=== PATIENT | female | born 1965 | race Caucasian/White ===

== ENCOUNTER → 2018-02-04 | Outpatient (CLI) | payer BC ==
--- NOTE | 2018-02-05 09:47 | RAD ---
DATE: 02/04/2018 EXAM: MAMMO ANKIT SCREENING BILATERAL HISTORY: Routine screening COMPARISON: 04/25/2012 This study was interpreted with the benefit of Computerized Aided Detection (CAD). The breast parenchyma shows scattered fibroglandular densities. Breast parenchyma level B. FINDINGS: 2-D and 3-D tomosynthesis imaging was performed in CC and MLO projections. No new or enlarging breast densities are seen. Minimal benign type calcifications present. No suspicious microcalcifications are evident. IMPRESSION: Stable mammograms without evidence of malignancy. BI-RADS CATEGORY: 2 BENIGN FINDING(S) RECOMMENDED FOLLOW-UP: 12M 12 MONTH FOLLOW-UP PQRS compliance statement: Patient information was entered into a reminder system with a target due date for the next mammogram. Mammography is a sensitive method for finding small breast cancers, but it does not detect them all and is not a substitute for careful clinical examination. A negative mammogram does not negate a clinically suspicious finding and should not result in delay in biopsying a clinically suspicious abnormality. "Our facility is accredited by the [employer] Mammography [employer]."
== END | disposition home or self-care (01) ==
LOC: MAMMO 09:11
PROVIDERS: ATTEND Physician Assistant
DX: Z12.31 Encounter for screening mammogram for malignant neoplasm of breast (principal)
CPT/HCPCS: 77063; 77067

== ENCOUNTER → 2020-09-14 | Outpatient (CLI) | payer BC ==
--- NOTE | 2020-09-14 15:42 | RAD ---
DATE: 09/14/2020 9:20 AM EXAM: DIGITAL SCREEN BILAT W/CAD HISTORY: Screening COMPARISON: 02/04/2018 Bilateral CC and MLO views of the breasts were performed. Bilateral breast tomosynthesis was performed in CC and MLO projections. This study was interpreted with the benefit of Computerized Aided Detection (CAD). FINDINGS: Breast Density: FATTY The Breast Parenchyma is primarily fatty replaced. Breast parenchyma level density A. No suspicious masses, microcalcifications or architectural distortion is present to suggest malignancy in either breast. The visualized axillae are unremarkable. IMPRESSION: No mammographic evidence of malignancy. BI-RADS CATEGORY: 1 NEGATIVE RECOMMENDED FOLLOW-UP: 12M 12 MONTH FOLLOW-UP Annual screening mammography is recommended, unless clinically indicated sooner based on symptoms or change in physical exam. PQRS compliance statement: Patient information was entered into a reminder system with a target due date for the next mammogram. Mammography is a sensitive method for finding small breast cancers, but it does not detect them all and is not a substitute for careful clinical examination. A negative mammogram does not negate a clinically suspicious finding and should not result in delay in biopsying a clinically suspicious abnormality. "Our facility is accredited by the [employer] Mammography [employer]."
== END ==
LOC: MAMMO 09:07
PROVIDERS: ATTEND Physician Assistant
DX: Z12.31 Encounter for screening mammogram for malignant neoplasm of breast (principal)
CPT/HCPCS: 77067

== ENCOUNTER 2021-07-09 18:46 | Emergency (ER) | payer BC ==
[~2021-07-09] VITALS: Ht 167.6 cm; Wt 101.4 kg
--- NOTE | 2021-07-09 18:59 | PHYS DOC ---
Adult General HPI HPI Patient is a 55-year-old female presents with abdominal pain, around her umbilicus, 6 out of 10, sharp in nature with some nausea but no vomiting. States she was diagnosed with Covid a few days ago and has had some generalized body aches, and fatigue with some nasal congestion. Denies any recent travels, traumas, fevers, chest pain, shortness of breath, dysuria, hematuria, blood in the stool or diarrhea. Review of Systems Review of Systems Review of systems otherwise unremarkable except noted in HPI Physical Exam Physical Exam Constitutional: Well developed, well nourished, no acute distress, non-toxic appearance. [] HENT: Normocephalic, atraumatic, bilateral external ears normal, oropharynx moist, no oral exudates, nose normal. [] Eyes: conjunctiva normal, no discharge. [] Neck: Normal range of motion, no tenderness, supple, no stridor. [] Cardiovascular:Heart rate regular rhythm, no murmur [] Lungs & Thorax: Bilateral breath sounds clear to auscultation [] Abdomen: soft, generalized tenderness with no rebound or guarding,, no masses, no pulsatile masses. [] Skin: Warm, dry, no erythema, no rash. [] Back: no CVA tenderness. [] Extremities: No tenderness, no cyanosis, no clubbing, ROM intact, no edema. [] Neurologic: Alert and oriented X 3, no focal deficits noted. [] Psychologic: Affect normal, judgement normal, mood normal. [] EKG EKG [] Radiology/Procedures Radiology/Procedures []am: CT of abdomen and pelvis without contrast INDICATION: Abdominal pain, around umbilical TECHNIQUE: Sequential axial images through the abdomen and pelvis obtained without IV contrast. Sagittal and coronal reformatted images were reconstructed from the axial data and reviewed. Exposure: One or more of the following in the visualized dose reduction techniques were utilized for this examination: 1. Automated exposure control 2. Adjustment of the MA and/or KV according to patient size 3. Use of iterative of reconstructive technique Comparisons: None FINDINGS: Heart size is normal. No pericardial effusion. Patchy areas of groundglass opacity noted lungs bilaterally. No pleural effusion. Diffuse hepatic steatosis. Spleen, pancreas, gallbladder and adrenals are unremarkable. No perinephric inflammation or hydronephrosis. No renal or ureteral calculi are identified. Bladder is decompressed not well evaluated. Uterus is absent. No abnormal adnexal mass. Moderate amount of stool is noted throughout the colon. Appendix is normal. Small bowel is unremarkable. No free intra-abdominal air or fluid. No obstruction. Abdominal aorta has normal course and caliber. No enlarged intra-abdominal lymph nodes are identified. No suspicious osseous lesions or acute fractures. IMPRESSION: 1. No acute process identified in the abdomen or pelvis. 2. Diffuse hepatic steatosis. Heart Score C/O Chest Pain: No Risk Factors: Risk Factors: DM, Current or recent (<one month) smoker, HTN, HLP, family history of CAD, obesity. Risk Scores: Risk Factors: DM, Current or recent (<one month) smoker, HTN, HLP, family history of CAD, obesity. Course & Med Decision Making Course & Med Decision Making Patient is a 55-year-old female presents with abdominal pain Vital signs notable for hypertension. Physical exam noted above. Patient placed on the monitor with IV access established and IV fluid given. EKG with normal rate, normal rhythm, QRS and no STEMI. Troponin normal. Given nausea and pain medicine. Laboratory analysis not concerning. CT notable for fatty liver and probable atypical pneumonia. Started on antibiotics in the ED. Discussed all findings with patient. Advised on Covid quarantine at home. Advised on symptomatic treatment at home. Advised on antibiotics. Advised to follow-up first thing Sunday with primary care physician update on ED visit and diagnoses. Gave return precautions to the ED. Patient grateful, verbalized understanding and agreed with plan of discharge Dragon Disclaimer Dragon Disclaimer This electronic medical record was generated, in whole or in part, using a voice recognition dictation system. Departure Departure: Impression: Primary Impression: Pneumonia Additional Impressions: Lab test positive for detection of COVID-19 virus Hepatic steatosis Disposition: HOME / SELF CARE / HOMELESS Condition: IMPROVED Referrals: MIKA NARANJO (PCP) Patient Instructions: Pneumonia, Adult Additional Instructions: Thank you for coming into the emergency department tonight and allowing us to take care of you. Please read the attached information carefully to go back over what we discussed. Please be sure to quarantine appropriately and contact your primary care physician on Sunday to update on your ED visit. Please discuss with them your diagnosis of fatty liver and strategies to begin treatment and reversal of this process. Please take all your antibiotics as prescribed until gone. Please be sure to drink plenty of fluids, eat at least 3 nutritious meals a day and take your daily multivitamin. You have been tested for or diagnosed with COVID-19. It is an infection caused by a new type of coronavirus. COVID-19 will cause cold-like or mild flu symptoms in most. It can cause more severe symptoms like problems breathing in some. There is no treatment for COVID-19. The body will clear the infection over time. Self-care will help to ease discomfort. Steps to Take: Self-Care Rest as needed. Healthy habits may help you feel better. Steps include: Choose healthy foods including fruits and vegetables. Drink water throughout the day. Get plenty of sleep each night. If you smoke, try to quit. It may ease breathing. Avoid alcohol. Keep Others Healthy The virus can spread to others. Droplets are released every time you sneeze or cough. The droplets can get into the mouth, nose, or eyes of people near you and lead to infection. To lower the chances of spreading COVID-19 to others: Stay at home until your doctor has said it is safe to leave. If you tested positive this will mean staying isolated until both of the following are true: At least 7 days have passed since the start of illness. You are free of fever for at least 72 hours without the use of medicine. During this time: - Avoid public areas, events, or transportation. Do not return to work or school until your doctor has said it is safe to do so. - Call ahead if you need to go to a medical center. Let them know you may have COVID-19. It will help them guide you where to go. They may also ask you to wear a facemask when you come to the office. - If you call for emergency medical services, let them know you may have COVID-19. While at home: - Try to avoid close contact with others. Stay about 6 feet away. - If possible, spend most of your time in a separate room from others. - Use a face mask if you will be in close contact with others such as sharing a room or vehicle. - Have someone wipe down common surfaces in the home. Use household counter hop every day on areas like doorknobs, counters, or sinks. - Cough or sneeze into a tissue. Throw the tissue away right after use. If a tissue is not available, cough or sneeze into your elbow. - Wash your hands often. Wash them after sneezing or coughing. Use soap and water and wash for at least 20 seconds. Alcohol based hand supervisor bottle house cleaners can be used if soap and water is not available. - Do not prepare food for others. Avoid sharing personal items like forks, spoons, or toothbrushes. - Avoid close contact with pets while you are sick. There is no evidence of the virus passing to pets. This is a safety step until more is known about this virus. Isolation can be frustrating. Social interaction can help. Keep in touch with friends and family through phone and tech options. You can still interact with others in your home, just keep a safe distance of about 6 feet. Follow-up: Your doctors office will check in with you to see if there are any changes in your health. You may be asked to keep track of symptoms to share with them. They will also let you know when you are clear to be in public again. Problems to Look Out For: Contact your doctor if your recovery is not going as you expect. Get emergency care if you have problems such as: - Trouble breathing - Nonstop chest pain or pressure - Changes in awareness, confusion, or problems waking - Lips or face have bluish color - Worsening of symptoms If you think you have an emergency, call for emergency medical services right away. [facility] Amoxicillin/Potassium Clav (AUGMENTIN 875-125 TABLET) 1 Each Tablet 1 TAB PO BID for PNA for 7 Days, #14 TAB 0 Refills Prov: BRAD RANGEL MD 07/09/21 Problem Qualifiers BRAD RANGEL MD Jul 09, 2021 18:59
[2021-07-09] MEDS ORDERED: IV RINGERS SOLUTION,LACTATED 1,000 ML IV ONE (19:30)
[2021-07-09] MEDS ORDERED: ONDANSETRON PF 4 MG/2 ML VIAL. IVP ONE (19:30)
[2021-07-09 19:55] LABS: BASO % 0 % (0-3); EOS % 0 % (0-3); HEMATOCRIT 46.3 % (36.0-47.0); HEMOGLOBIN 15.6 g/dL (12.0-15.5); LYMPH # 1.3 x10^3/uL (1.0-4.8); LYMPH % 19 % (24-48); MEAN CORPUSCULAR HEMOGLOBIN 30 pg (25-35); MEAN CORPUSCULAR HGB CONC 34 g/dL (31-37); MEAN CORPUSCULAR VOLUME 90 fL (79-100); MONO # 0.8 x10^3/uL (0.0-1.1); MONO % 11 % (0-9); NEUT % 70 % (31-73); PLATELET COUNT 172 x10^3/uL (140-400); RED BLOOD COUNT 5.14 x10^6/uL (3.50-5.40); RED CELL DISTRIBUTION WIDTH 13.2 % (11.5-14.5); WHITE BLOOD COUNT 7.1 x10^3/uL (4.0-11.0)
[2021-07-09 20:04] LABS: CALCIUM 9.2 mg/dL (8.5-10.1); CREATININE 0.8 mg/dL (0.6-1.0); GFR 74.7; POTASSIUM 3.7 mmol/L (3.5-5.1)
[2021-07-09 20:07] LABS: BACTERIA,URINE 0 /HPF (0-FEW); BILIRUBIN,URINE NEG (NEG); CLARITY,URINE CLEAR; COLOR,URINE YELLOW; GLUCOSE,URINE NEG (NEG); NITRITE,URINE NEG (NEG); RBC,URINE 0 /HPF (0-2); SQUAMOUS EPITHELIAL CELL,UR MOD /LPF; UROBILINOGEN,URINE 0.2 mg/dL (0.2 mg/dL); WBC,URINE 0 /HPF (0-4)
[2021-07-09 20:09] LABS: ALBUMIN 3.8 g/dL (3.4-5.0); ALBUMIN/GLOBULIN RATIO 0.9 (1.0-1.7); TOTAL BILIRUBIN 0.5 mg/dL (0.2-1.0); TOTAL PROTEIN 8.1 g/dL (6.4-8.2)
--- NOTE | 2021-07-09 20:14 | RAD ---
Exam: CT of abdomen and pelvis without contrast INDICATION: Abdominal pain, around umbilical TECHNIQUE: Sequential axial images through the abdomen and pelvis obtained without IV contrast. Sagit gena and coronal reformatted images were reconstructed from the axial data and reviewed. Exposure: One or more of the following in the visualized dose reduction techniques were utilized for this examination: 1. Automated exposure control 2. Adjustment of the MA and/or KV according to patient size 3. Use of iterative of reconstructive technique Comparisons: None FINDINGS: Heart size is normal. No pericardial effusion. Patchy areas of groundglass opacity noted lungs bilate rally. No pleural effusion. Diffuse hepatic steatosis. Spleen, pancreas, gallbladder and adrenals are unremarkable. No perinephric inflammation or hydronephrosis. No renal or ureteral calculi are identified. Bladder is decompressed not well evaluated. Uterus is absent. No abnormal adnexal mass. Moderate amount of stool is noted throughout the colon. Appendix is normal. Small bowel is unremarkab le. No free intra-abdominal air or fluid. No obstruction. Abdominal aorta has normal course and caliber. No enlarged intra-abdominal lymph nodes are identified. No suspicious osseous lesions or acute fractures. IMPRESSION: 1. No acute process identified in the abdomen or pelvis. 2. Diffuse hepatic steatosis. Electronically signed by: Sangita Walker MD (07/09/2021 8:11 PM) [facility]
[2021-07-09] MEDS ORDERED: AMOX1TAB61 PO (20:29)
[2021-07-09] MEDS ORDERED: ONDANSETRON 4MG ODT 4TABLET STARTPACK. PO ONE (20:45)
[2021-07-09] MEDS ORDERED: AMOXICILLIN/K CLAV 875/125MG TABLET. PO ONE (20:45)
--- NOTE | 2021-07-09 21:27 | RAD ---
Exam: Chest one view INDICATION: Cough, fever TECHNIQUE: Frontal view of the chest Comparisons: None FINDINGS: The cardiomediastinal silhouette and pulmonary vessels are within normal limits. The lung and pleural spaces are clear. IMPRESSION: No acute cardiopulmonary process. Electronically signed by: Sangita Walker MD (07/09/2021 9:25 PM) [facility]
[2021-07-09 21:30] VITALS: BP 148/70
--- NOTE | 2021-07-10 04:39 | EKG ---
[address] [address] Test Date: 2021-07-09 Test Time: 20:32:34 Pat Name: MINERVA SOLOMON Department: Room: Gender: F Enrollment Advisor: ANA : [id number] Requested By: BRAD RANGEL Order Number: [id number] Reading MD: Rob Fisher Measurements Intervals [place] Rate: 73 P: 47 PA: 142 QRS: 1 QRSD: 80 T: 62 QT: 366 QTc: 407 Interpretive Statements SINUS RHYTHM SEPTAL Q WAVE Electronically Signed On 07-11-2021 9:48:06 [employer] by Rob Fisher
== END 2021-07-09 21:31 | disposition home or self-care (01) ==
LOC: ER 18:46
DX: U07.1 COVID-19 (principal); J18.9 Pneumonia, unspecified organism; K76.0 Fatty (change of) liver, not elsewhere classified
CPT/HCPCS: 36415; 71045; 74176; 80053; 81001; 83690; 84484; 85025; 87086; 93005; 96361; 96374; 96375; 99285; J2405; J3010; J7120; Q0162

== ENCOUNTER 2021-07-15 15:09 | Emergency (ER) | payer BC ==
[~2021-07-15] VITALS: Ht 167.6 cm; Wt 101.4 kg
[~2021-07-15 15:09] MED LIST changes: -AZIT250T6 PO; -BUDE90AE IH; -METH4TAB2 PO
--- NOTE | 2021-07-15 15:56 | PHYS DOC ---
Past History Past Surgical History: Hysterectomy, Tonsillectomy Alcohol Use: None Adult General HPI HPI Patient is a 55-year-old female presenting for Covid sequelae. Patient is an unvaccinated individual with history of asthma and anxiety, states she started developing generalized symptoms such as nausea and diarrhea approximately 2 weeks ago and was subsequently tested for and diagnosed with Covid on July 06. She has been at home providing supportive care to her self. Reports her symptoms eventually turned into lost of taste, smell and URI symptoms. She states she has also been having subjective fever and chills without any temperature exceeding 100.4. She presented to her primary care physician today for ongoing symptoms and a chest x-ray was performed concerning for multifocal Covid pneumonia. As such, even though patient was hemodynamically stable, she was referred to our ER for evaluation and consideration for admission Review of Systems Review of Systems Fourteen body systems of review of systems have been reviewed. See HPI for pertinent positives and negative responses, other kauffman all other systems are n egative, non-pertinent or non-contributory Allergies Allergies Allergies Coded Allergies Type Severity Reaction Last Updated Verified Sulfa (Sulfonamide Antibiotics) Allergy Intermediate Unknown 07/09/21 Yes ciprofloxacin Allergy Intermediate Unknown 07/09/21 Yes codeine Allergy Intermediate Unknown 07/09/21 Yes Physical Exam Physical Exam Constitutional: Well developed, age-appropriate, no acute distress and nontoxic in appearance but does appear that she feels poorly HENT: Normocephalic, atraumatic, bilateral external ears normal, oropharynx dry, no oral exudates, nose normal. Eyes: PERRLA, EOMI, conjunctiva normal, no discharge. Neck: Normal range of motion, no tenderness, supple, no stridor. Cardiovascular: Heart rate tachycardic, sinus rhythm, no murmurs rubs or gallops Lungs & Thorax: No obvious respiratory failure, no increase work of breathing or accessory muscle use, scant rhonchi globally Abdomen: Bowel sounds normal, soft, no tenderness, no masses, no pulsatile masses. Nonsurgical abdomen, no peritoneal signs Skin: Warm, dry, no erythema, no rash. Back: No tenderness, no CVA tenderness. Extremities: No tenderness, no cyanosis, no clubbing, ROM intact, no edema. Neurologic: Alert and oriented X 3, grossly normal motor & sensory function, no focal deficits noted. Psychologic: Anxious affect, depressed mood Current Patient Data Vital Signs Vital Signs Date Time Temp Pulse Resp B/P (MAP) Pulse Ox O2 Delivery O2 Flow Rate FiO2 07/15/21 15:40 102.4 100 20 155/84 (107) 95 Room Air Vital Signs Date Time Temp Pulse Resp B/P (MAP) Pulse Ox O2 Delivery O2 Flow Rate FiO2 07/15/21 19:00 99.1 89 22 162/88 (112) 95 Room Air Lab Results Laboratory Tests Test 07/15/21 16:00 07/15/21 17:20 White Blood Count 9.1 x10^3/uL Red Blood Count 4.45 x10^6/uL Hemoglobin 13.3 g/dL Hematocrit 40.0 % Mean Corpuscular Volume 90 fL Mean Corpuscular Hemoglobin 30 pg Mean Corpuscular Hemoglobin Concent 33 g/dL Red Cell Distribution Width 13.2 % Platelet Count 270 x10^3/uL Neutrophils (%) (Auto) 77 % Lymphocytes (%) (Auto) 12 % Monocytes (%) (Auto) 11 % Eosinophils (%) (Auto) 0 % Basophils (%) (Auto) 0 % Neutrophils # (Auto) 7.0 x10^3uL Lymphocytes # (Auto) 1.1 x10^3/uL Monocytes # (Auto) 1.0 x10^3/uL Eosinophils # (Auto) 0.0 x10^3/uL Basophils # (Auto) 0.0 x10^3/uL D-Dimer (Leonarda) 2.13 mg/L Sodium Level 139 mmol/L Potassium Level 3.9 mmol/L Chloride Level 102 mmol/L Carbon Dioxide Level 25 mmol/L Anion Gap 12 Blood Urea Nitrogen 4 mg/dL Creatinine 0.6 mg/dL Estimated GFR (Cockcroft-Gault) 104.2 BUN/Creatinine Ratio 7 Glucose Level 93 mg/dL Lactic Acid Level 1.1 mmol/L Calcium Level 8.5 mg/dL Total Bilirubin 0.4 mg/dL Aspartate Amino Transf (AST/SGOT) 35 U/L Alanine Aminotransferase (ALT/SGPT) 34 U/L Alkaline Phosphatase 68 U/L Troponin I High Sensitivity 9 ng/L ND-Clr-I-Type Natriuretic Peptide 138 pg/mL Total Protein 6.9 g/dL Albumin 3.0 g/dL Albumin/Globulin Ratio 0.8 Urine Collection Type Clean catch Urine Color Yellow Urine Clarity Clear Urine pH 7.0 Urine Specific [place] 1.010 Urine Protein Neg Urine Glucose (UA) Neg mg/dL Urine Ketones (Stick) 15 mg/dL Urine Blood Neg Urine Nitrite Neg Urine Bilirubin Neg Urine Urobilinogen Dipstick 0.2 mg/dL Urine Leukocyte Esterase Neg Urine RBC 0 /HPF Urine WBC 0 /HPF Urine Squamous Epithelial Cells Many /LPF Urine Bacteria 0 /HPF Current Medications Medications (Trade) Dose Ordered Sig/Stu Route PRN Reason Start Time Stop Time Status Last Admin Dose Admin Sodium Chloride 1,000 ml @ 1,000 mls/hr 1X ONCE IV 07/15/21 16:00 07/15/21 16:59 DC 07/15/21 16:00 Acetaminophen (Tylenol) 1,000 mg 1X ONCE PO 07/15/21 17:00 07/15/21 17:01 DC 07/15/21 17:19 Ketorolac Tromethamine (Toradol 30mg Vial) 30 mg 1X ONCE IVP 07/15/21 17:00 07/15/21 17:03 DC 07/15/21 17:19 Iohexol (Omnipaque 350 Mg/ml) 100 ml 1X ONCE IV 07/15/21 17:30 07/15/21 17:31 DC 07/15/21 17:50 Azithromycin (Zithromax) 500 mg 1X ONCE PO 07/15/21 18:00 07/15/21 18:09 DC 07/15/21 18:59 EKG EKG EKG ordered and interpreted by myself at 1625 hrs. is sinus rhythm at 95 bpm, unremarkable intervals, no axis deviation, no acute ischemic findings, no STEMI Radiology/Procedures Radiology/Procedures EXAMINATION: Chest radiograph. VIEWS: Frontal and lateral views of the chest COMPARISON: 07/09/2021 INDICATION:55 years, Female, with Covid pneumonia. FINDINGS: Stable cardiomediastinal silhouette. Scattered bilateral middle and lower lobe peripheral groundglass opacities. No pleural effusion or pneumothorax. No acute osseous process. IMPRESSION: Findings consistent with multifocal Covid pneumonia. Electronically signed by: Osmany Holman DO (07/15/2021 2:44 PM) [id number] ////////////////// CTA CHEST INDICATION: shob, covid positive Comparison: None. TECHNIQUE: Following the uneventful administration of intravenous contrast, 100 cc Omnipaque 350, axial CT sections were obtained through the lungs and upper abdomen. Multiplanar reconstructions and MIP images were obtained. PQRS compliance statement: One or more of the following individualized dose reduction techniques were utilized for this examination: 1. Automated exposure control 2. Adjustment of the mA and/or kV according to patient size 3. Use of iterative reconstruction technique FINDINGS: Pulmonary arteries: No evidence of pulmonary thromboembolic disease. Lungs and Airways: Scattered bilateral subpleural consolidations. No abnormality of the central airways. Pleura: The pleural spaces are normal. Heart and Mediastinum: The visualized thyroid is normal in size and attenuation. No axillary or supraclavicular lymphadenopathy. No mediastinal, hilar or retrocrural lymphadenopathy. The heart and pericardium are within normal limits. The great vessels of the thorax are normal. Abdomen: Limited images through the upper abdomen show no abnormality of the visualized organs. Bones and Soft Tissues: The visualized bones and chest wall soft tissues are within normal limits. IMPRESSION: 1. No evidence of pulmonary thromboembolic disease. 2. Scattered bilateral subpleural consolidations, consistent with patient's history of infection. Electronically signed by: Calin Russo MD (07/15/2021 6:15 PM) [facility] Heart Score C/O Chest Pain: No HEART Score for Chest Pain: HEART Score for Chest Pain Response (Comments) Value History Slighlty/Non-Suspicious 0 ECG Normal 0 Age >45 - < 65 1 Risk Factors 1 or 2 Risk Factors 1 Troponin < Normal Limit 0 Total 2 Risk Factors: Risk Factors: DM, Current or recent (<one month) smoker, HTN, HLP, family history of CAD, obesity. Risk Scores: Risk Factors: DM, Current or recent (<one month) smoker, HTN, HLP, family history of CAD, obesity. Course & Med Decision Making Course & Med Decision Making Airway patent, breathing unlabored, IV access and vitals obtained concerning for tachycardia and fever HPI, physical exam and comprehensive ER work-up obtained Patient is symptoms and vitals improved with antipyretics and IV fluid resuscitation. Given patient's chest x-ray and CT findings, decision was made to start antibiotic therapy I disclosed entirety of findings while in ER. I discussed improvement in fever and tachycardia with provided intervention. I reviewed all the lab and imaging findings consistent with known COVID-19 infection and subsequent pneumonia I disclosed there is little indication for further diagnostic work-up and/or need for hospitalization at this point and recommended discharge home with continued antibiotics, budesonide inhaler, steroids, incentive spirometry and pr oper pulmonary toilet hygiene Patient tearful. She is questioning why she came to the ER. She is questioning why her primary care physician said she was going to get admitted. She is upset and asking if she is going to . She is upset she is not going to be admitted I discussed I have no criteria to admit her given overburdened healthcare system with near all local hospitals near or at total capacity due to COVID-19 pandemic. She is not requiring oxygen. She is tolerating p.o. intake. She is hemodynamically stable. I discussed need for close communication with primary care physician with recommendations above. She does have pulse ox at home and states she has had readings in the lower 90s but has had no formal desaturations into the 80s, no indication for oxygen or admission as discussed Ultimately, strict return precautions were discussed with good understanding by patient, all questions and concerns addressed prior to ER departure Dragon Disclaimer Dragon Disclaimer This electronic medical record was generated, in whole or in part, using a voice recognition dictation system. Departure Departure: Impression: Primary Impression: Pneumonia due to COVID-19 virus Disposition: HOME / SELF CARE / HOMELESS Condition: STABLE Referrals: MIKA NARANJO (PCP) Additional Instructions: As discussed prior to ER departure, your comprehensive ER work-up was nonconcerning for any emergent or surgical issues. You initially presented tachycardic and feverish but this improved with administered antipyretics and IV fluid. Your comprehensive ER work-up showed obvious Covid pneumonia but you were oxygenating and ventilating well. There was no indication for hospitalization at this time. As such, you were discharged home with new inhaler, steroids, and antibiotic for which you should take daily in addition to continued supportive care practices. Lease keep close contact with your primary care physician to review ongoing symptoms and arrange close outpatient follow- up. If any concerning signs or symptoms present prior to safe outpatient follow-up please do not hesitate to come back for repeat evaluation. It was a pleasure to take care of you and I wish you the best going forward Scripts Methylprednisolone (MEDROL) 4 Mg Tab.ds.pk 1 PKG PO UD for covid, #1 PKG Prov: YONIS SIMMS DO 07/15/21 Budesonide (PULMICORT FLEXHALER) 90 Mcg Aer.pow.ba 90 MCG IH BID for shob, #1 INH Prov: YONIS SIMMS DO 07/15/21 Azithromycin (AZITHROMYCIN TABLET) 250 Mg Tablet 250 MG PO DAILY for ANTI-BIOTIC, #4 TAB 0 Refills Prov: YONIS SIMMS DO 07/15/21 YONIS SIMMS DO Jul 15, 2021 15:56
[2021-07-15] MEDS ORDERED: IV NORMAL SALINE 1,000ML 1,000 ML IV ONE (16:00)
[2021-07-15 16:41] LABS: BASO % 0 % (0-3); EOS % 0 % (0-3); HEMOGLOBIN 13.3 g/dL (12.0-15.5); LYMPH # 1.1 x10^3/uL (1.0-4.8); LYMPH % 12 % (24-48); MEAN CORPUSCULAR HEMOGLOBIN 30 pg (25-35); MEAN CORPUSCULAR HGB CONC 33 g/dL (31-37); MEAN CORPUSCULAR VOLUME 90 fL (79-100); MONO % 11 % (0-9); NEUT % 77 % (31-73); PLATELET COUNT 270 x10^3/uL (140-400); RED BLOOD COUNT 4.45 x10^6/uL (3.50-5.40); RED CELL DISTRIBUTION WIDTH 13.2 % (11.5-14.5); WHITE BLOOD COUNT 9.1 x10^3/uL (4.0-11.0)
--- NOTE | 2021-07-15 16:45 | EKG ---
[address] [address] Test Date: 2021-07-15 Test Time: 16:15:40 Pat Name: MINERVA SOLOMON Department: Room: Gender: F Kitchen Steward/Stewardess: : 1965 Requested By: YONIS SIMMS Order Number: [id number] Reading MD: Abad Russell MD Measurements Intervals [place] Rate: 95 P: 53 MA: 138 QRS: 3 QRSD: 82 T: 34 QT: 340 QTc: 430 Interpretive Statements SINUS RHYTHM CONSIDER SEPTAL INFARCT Electronically Signed On 07-17-2021 20:43:55 ACCOUNT RECEIVABLE ASSOCIATE by Abad Russell MD
[2021-07-15 16:57] LABS: CALCIUM 8.5 mg/dL (8.5-10.1); CREATININE 0.6 mg/dL (0.6-1.0); GFR 104.2; POTASSIUM 3.9 mmol/L (3.5-5.1)
[2021-07-15] MEDS ORDERED: KETOROLAC 30 MG/ML VIAL. IVP ONE (17:00)
[2021-07-15] MEDS ORDERED: ACETAMINOPHEN 500 MG TABLET PO ONE (17:00)
[2021-07-15 17:10] LABS: ALBUMIN/GLOBULIN RATIO 0.8 (1.0-1.7); TOTAL BILIRUBIN 0.4 mg/dL (0.2-1.0); TOTAL PROTEIN 6.9 g/dL (6.4-8.2)
[2021-07-15] MEDS ORDERED: IOHEXOL 350 MG/ML 100 ML VIAL. IV ONE (17:30)
[2021-07-15] MEDS ORDERED: AZITHROMYCIN 250 MG TABLET. PO ONE (18:00)
--- NOTE | 2021-07-15 18:17 | RAD ---
CTA CHEST INDICATION: shob, covid positive Comparison: None. TECHNIQUE: Following the uneventful administration of intravenous contrast, 100 cc Omnipaque 350, axi al CT sections were obtained through the lungs and upper abdomen. Multiplanar reconstructions and MIP images were obtained. PQRS compliance statement: One or more of the following individualized dose reduction techniques were utilized for this examinat ion: 1. Automated exposure control 2. Adjustment of the mA and/or kV according to patient size 3. Use of iterative reconstruction technique FINDINGS: Pulmonary arteries: No evidence of pulmonary thromboembolic disease. Lungs and Airways: Scattered bilateral subpleural consolidations. No abnormality of the central airwa ys. Pleura: The pleural spaces are normal. Heart and Mediastinum: The visualized thyroid is normal in size and attenuation. No axillary or supra clavicular lymphadenopathy. No mediastinal, hilar or retrocrural lymphadenopathy. The heart and peric ardium are within normal limits. The great vessels of the thorax are normal. Abdomen: Limited images through the upper abdomen show no abnormality of the visualized organs. Bones and Soft Tissues: The visualized bones and chest wall soft tissues are within normal limits. IMPRESSION: 1. No evidence of pulmonary thromboembolic disease. 2. Scattered bilateral subpleural consolidations, consistent with patient's history of infection. Electronically signed by: Calin Russo MD (07/15/2021 6:15 PM) [facility]
[2021-07-15 18:18] LABS: BACTERIA,URINE 0 /HPF (0-FEW); BILIRUBIN,URINE NEG (NEG); CLARITY,URINE CLEAR; COLOR,URINE YELLOW; GLUCOSE,URINE NEG (NEG); NITRITE,URINE NEG (NEG); RBC,URINE 0 /HPF (0-2); UROBILINOGEN,URINE 0.2 mg/dL (0.2 mg/dL); WBC,URINE 0 /HPF (0-4)
[2021-07-15 18:19] LABS: SQUAMOUS EPITHELIAL CELL,UR MANY /LPF
[2021-07-15] MEDS ORDERED: METH4TAB2 PO (18:28)
[2021-07-15] MEDS ORDERED: AZIT250T6 PO (18:28)
[2021-07-15] MEDS ORDERED: BUDE90AE IH (18:28)
[2021-07-15 19:00] VITALS: BP 162/88
== END 2021-07-15 19:30 | disposition home or self-care (01) ==
LOC: ER 15:11
DX: U07.1 COVID-19 (principal); J12.82 Pneumonia due to coronavirus disease 2019; J45.909 Unspecified asthma, uncomplicated; F41.9 Anxiety disorder, unspecified; Z88.2 Allergy status to sulfonamides; Z88.1 Allergy status to other antibiotic agents; Z88.5 Allergy status to narcotic agent
CPT/HCPCS: 36415; 71275; 80053; 81001; 83605; 83880; 84484; 85025; 85379; 87040; 93005; 96361; 96374; 99285; G0238; J1885; J7030; Q9967

== ENCOUNTER → 2021-07-15 | Outpatient (CLI) | payer BC ==
[2021-07-09 21:30] VITALS: BP 148/70
[~2021-07-15] MED LIST: AMOX1TAB61 PO; AZIT250T6 PO; BUDE90AE IH; METH4TAB2 PO
--- NOTE | 2021-07-15 14:47 | RAD ---
EXAMINATION: Chest radiograph. VIEWS: Frontal and lateral views of the chest COMPARISON: 07/09/2021 INDICATION:55 years, Female, with Covid pneumonia. FINDINGS: Stable cardiomediastinal silhouette. Scattered bilateral middle and lower lobe peripheral groundglass opacities. No pleural effusion or pneumothorax. No acute osseous process. IMPRESSION: Findings consistent with multifocal Covid pneumonia. Electronically signed by: Osmany Holman DO (07/15/2021 2:44 PM) [id number]
== END ==
LOC: RAD 14:25
PROVIDERS: ATTEND Physician Assistant
DX: U07.1 COVID-19 (principal)
CPT/HCPCS: 71046